=== PATIENT | male | born 1945 | race Caucasian/White ===

== ENCOUNTER 2017-11-06 12:51 | Day surgery (SDC) | payer MEDICARE, OTHER ==
[~2017-11-06] VITALS: Ht 182.9 cm; Wt 90.7 kg
--- NOTE | 2017-11-06 15:02 | NUR ---
11/06/17 1502 Ramya Weldon 1451 PT ARRIVES TO PACU ALERT AND ORIENTED, LAYING ON LEFT SIDE. MONITORS IN PLACE. O2 AT 3L PER NC. BREATHING EVEN AND NON LABORED. 1500 PT PLACED ON ROOM AIR AT THIS TIME. REPORTS 1/10 PAIN. ENCOURAGED TO PASS GAS. ABD SOFT AND NON DISTENDED. DENIES NAUSEA, LR INFUSING TO LEFT WRIST.
--- NOTE | 2017-11-07 18:28 | OR ---
[facility] [address], [place] [address] Signed DATE OF OPERATION: 11/06/2017 SURGEON: Gentry Stack MD PREOPERATIVE DIAGNOSES: 1. 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 2. Known diverticulosis. POSTOPERATIVE DIAGNOSIS: Sigmoid and left-sided diverticulosis. PROCEDURE: Total colonoscopy to cecum. ANESTHESIA: Intravenous sedation, fentanyl 150 mcg, Versed 6 mg. INDICATION: This 72-year-old, white man is a patient of Dr. Spear. He underwent colonoscopy by me in 2001 where he was noted to have diverticulosis and underwent repeat colonoscopy in 2011 where he was noted to have a tubular adenoma at 30 cm, which was excised. He is symptom-free currently. He is admitted to undergo surveillance colonoscopy understanding the risks of bleeding, infection, perforation. FINDINGS: The prep was quite good. Complete colonoscopy was undertaken to the cecum. Passage through the sigmoid and left colon was challenging on the basis of angulation deformity related to diverticulosis, but was accomplished safely ultimately intubating the cecum fully. There was no evidence of polyp. He had numerous diverticula as previously stated and no other findings of concern. DESCRIPTION OF PROCEDURE: The patient was brought to the endoscopy suite and placed in lateral decubitus position, given intravenous sedation to the point of slurred speech and nystagmus. Additional sedation was given as needed. Digital rectal exam was performed showing no sign of abnormality. An Olympus video colonoscope was passed in the rectum and manipulated throughout the colon ultimately intubating the cecum itself. Passage to the sigmoid and left colon required a considerable amount of effort, tenacity, and patience, and gentle technique Electronically Signed By: GENTRY STACK MD 11/07/17 1828 PATIENT NAME: SUEJY JERNIGAN OPERATIVE REPORT DATE OF : 43 REPORT #: [id number] PHYSICIAN: GENTRY STACK MD PCP: RUDDY SPEAR DO REPORT IS CONFIDENTIAL AND NOT TO BE RELEASED WITHOUT AUTHORIZATION [facility] [address] [place] [id number] Signed as the angulation deformity from diverticulosis was significant. Once the cecum was obtained, however, irrigation was undertaken showing a normal ileocecal valve and cecum. Scope was carefully withdrawn from that point and examination throughout showed no sign of polyps or colitis, but did confirm diverticular changes of the left colon and sigmoid as previously noted. Retroflexed view of the rectum was normal. Scope was removed. The patient was taken to Recovery in good condition. CONCLUDING DIAGNOSIS: Significant diverticular changes of sigmoid and left colon. No evidence of recurrent polyp. PLAN: Recommend repeat colonoscopy in 7-10 years or sooner if clinically indicated, and a colonoscopy is performed if at his advanced age, it is clinically appropriate. MD RANGEL Morgan/NISREEN /[id number] cc: Ruddy Spear DO Copies: RUDDY SPEAR DO ~ Electronically Signed By: GENTRY STACK MD 11/07/17 1828 PATIENT NAME: SUJEY JERNIGAN OPERATIVE REPORT DATE OF : 43 REPORT #: [id number] PHYSICIAN: GENTRY STACK MD PCP: RUDDY SPEAR DO REPORT IS CONFIDENTIAL AND NOT TO BE RELEASED WITHOUT AUTHORIZATION
== END 2017-11-06 15:38 | disposition home or self-care (01) ==
LOC: DS 12:51 → OPS 12:51 → DS 14:00 → OPS 14:00
PROVIDERS: Surgery
PROC: 0DJD8ZZ Inspection of Lower Intestinal Tract, Via Natural or Artificial Opening Endoscopic (ICD-10-PCS; principal; 2017-11-06 14:00)
DX: Z12.11 Encounter for screening for malignant neoplasm of colon (principal); K57.30 Diverticulosis of large intestine without perforation or abscess without bleeding; Z86.010 Personal history of colon polyps
CPT/HCPCS: 99153; G0500; J2250; J3010; J7120